=== PATIENT | female | born 1985 | race Caucasian/White ===

== ENCOUNTER 2017-10-15 18:47 | Emergency (ER) | payer SELFPAY ==
[2017-10-15 19:00] VITALS: BP 125/65; PULSE 67; RESP 16; TEMP 98; O2SAT 100
--- NOTE | 2017-10-15 20:19 | ED PDOC ---
HPI: General Adult Time Seen by Provider: 10/15/17 19:04 Chief Complaint (Nursing): Abnormal Skin Integrity Chief Complaint (Provider): Swollen area behind left ear History Per: Patient History/Exam Limitations: no limitations Onset/Duration Of Symptoms: Hrs Current Symptoms Are (Timing): Still Present Additional Complaint(s): 32 year old female presents to the ED with swollen area behind left ear and left jaw which began today. Denies fever. PMD: FAMILY PROVIDER,NO Past Medical History Reviewed: Historical Data, Nursing Documentation, Vital Signs Vital Signs: Last Vital Signs Temp 98.0 F 10/15/17 18:58 Pulse 67 10/15/17 18:58 Resp 16 10/15/17 18:58 BP 125/65 10/15/17 18:58 Pulse Ox 100 10/15/17 20:24 - Medical History PMH: No Chronic Diseases - Surgical History Surgical History: - Family History Family History: States: Unknown Family Hx - Living Arrangements Living Arrangements: With Family - Social History Current smoker - smoking cessation education provided: Yes (Current Some Days Smoker) Ex-Smoker (has not smoked in the last 12 months): Yes Alcohol: None Drugs: Denies - Immunization History Hx Tetanus Toxoid Vaccination: Yes - Home Medications Home Medications: Ambulatory Orders Medication Instructions Recorded Albuterol HFA [Ventolin HFA 90 2 puff IH [id number] PRN #1 inhaler 12/10/15 mcg/actuation (8 g)] Ibuprofen [Motrin] 600 mg PO Q8 PRN #21 tab 12/10/15 Promethazine/Codeine 5 ml PO Q12 PRN #100 ml 12/10/15 [Codeine/Promethazine 10 MG/5 Ml-6.25 MG/5 Ml] Pseudoephedrine [Sudafed Tab] 1 tab PO Q6 PRN #24 tab 12/10/15 Amoxicillin/Clavulanate [Augmentin 1 tab PO BID #20 tab 10/15/17 875 MG-125 MG] - Allergies Allergies/Adverse Reactions: Allergies Allergy/AdvReac Type Severity Reaction Status Date / Time No Known Allergies Allergy Verified 10/15/17 18:57 Review of Systems ROS Statement: Except As Marked, All Systems Reviewed And Found Negative Constitutional: Negative for: Fever, Chills ENT: Positive for: Other (swelling behind left ear and left jaw) Physical Exam - Reviewed Nursing Documentation Reviewed: Yes Vital Signs Reviewed: Yes - Physical Exam Appears: Positive for: No Acute Distress Head Exam: Positive for: NORMAL INSPECTION Skin: Positive for: Normal Color, Warm, Dry. Negative for: Rash Eye Exam: Positive for: Normal appearance, EOMI, PERRL ENT: Positive for: TM Is/Are (normal), Other (mastoid non tender; left posterior area palpable lymph nodes.) Cardiovascular/Chest: Positive for: Regular Rate, Rhythm, Chest Non Tender. Negative for: Tachycardia Respiratory: Positive for: Normal Breath Sounds. Negative for: Wheezing, Respiratory Distress Neurologic/Psych: Positive for: Alert, Oriented - Laboratory Results Result Diagrams: 10/15/17 19:59 10/15/17 19:59 - ECG O2 Sat by Pulse Oximetry: 100 (RA) Pulse Ox Interpretation: Normal Medical Decision Making Medical Decision Makin Initial Impression 32 year old female presenting with swelling behind left ear and left jaw Initial Plan: * CMP * CBC * Reevaluation Documented by Araseli Mclean acting as a scribe for Alondra Cunningham PA-C. All medical record entries made by the Scribe were at my direction and personally dictated by me. I have reviewed the chart and agree that the record accurately reflects my personal performance of the history, physical exam, medical decision making, and the department course for this patient. I have also personally directed, reviewed, and agree with the discharge instructions and disposition. Disposition - Clinical Impression Clinical Impression: Lymphadenopathy - Disposition Disposition: Routine/Home Disposition Time: 21:28 Condition: GOOD Prescriptions: Amoxicillin/Clavulanate [Augmentin 875 MG-125 MG] 1 tab PO BID #20 tab Instructions: Lymphadenopathy (ED) Forms: [employer] ([place]gian)
[2017-10-15 20:32] LABS: ALB/GLOB RATIO 1.2 (1.0-2.1); ALBUMIN 4.3 g/dL (3.5-5.0); ALT/SGPT 57 U/L (9-52); AST/SGOT 42 U/L (14-36); BASO % 0.4 % (0.0-2.0); BLOOD UREA NITROGEN 15 mg/dl (7-17); CALCIUM 9.8 mg/dL (8.4-10.2); EOS # 0.1 K/uL (0.0-0.7); GFR AFRICAN-AMERICAN > 60; GFR NON-AFRICAN AMERICAN > 60; HEMOGLOBIN 12.6 g/dL (12.0-16.0); LYMPH # 2.5 K/uL (1.0-4.3); LYMPH % 36.6 % (20.0-40.0); MEAN CELL VOLUME 90.5 fl (81.0-99.0); MEAN CORPUSCULAR HEMOGLOBIN 30.4 pg (27.0-31.0); MEAN CORPUSCULAR HGB CONC 33.6 g/dL (33.0-37.0); MEAN PLATELET VOLUME 9.4 fl (7.2-11.7); MONO # 0.7 K/uL (0.0-0.8); MONO % 10.2 % (0.0-10.0); NEUT # 3.5 K/uL (1.8-7.0); NEUT % 51.8 % (50.0-75.0); RBC 4.15 Mil/uL (3.80-5.20); RED CELL DISTRIBUTION WIDTH 13.3 % (11.5-14.5); WHITE BLOOD COUNT 6.7 K/uL (4.8-10.8)
== END 2017-10-15 21:38 | disposition home or self-care (01) ==
LOC: H.ER 18:47
DX: R59.0 Localized enlarged lymph nodes (principal)

== ENCOUNTER 2018-06-27 19:52 | Emergency (ER) | payer SELFPAY ==
[2018-06-27 20:18] VITALS: BP 124/72; PULSE 62; RESP 18; TEMP 98.3; O2SAT 100
--- NOTE | 2018-06-28 23:32 | ED PDOC ---
HPI: Headache Time Seen by Provider: 06/27/18 20:29 Chief Complaint (Nursing): Headache History Per: Patient Additional Complaint(s): 33 y/o female with PMH of migraine c/o posterior headache and right sided neck pain x 3 days. Headache is dull and constant. Pt works out at the gym on a daily basis. Has been taking ibuprofen without relief. reports increased stess at work. denies fever, chills, back pain, vision changes, sore throat, eye pain, ear pain, nasal congestion, SOB, cough, numbness, paresthesias. Past Medical History Reviewed: Historical Data, Nursing Documentation, Vital Signs Vital Signs: Last Vital Signs Temp 98.3 F 06/27/18 20:15 Pulse 62 06/27/18 20:15 Resp 18 06/27/18 20:15 BP 124/72 06/27/18 20:15 Pulse Ox 100 06/27/18 20:15 - Surgical History Surgical History: - Family History Family History: States: Unknown Family Hx - Immunization History Hx Tetanus Toxoid Vaccination: Yes - Home Medications Home Medications: Ambulatory Orders Medication Instructions Recorded Albuterol HFA [Ventolin HFA 90 2 puff IH [id number] PRN #1 inhaler 12/10/15 mcg/actuation (8 g)] Ibuprofen [Motrin] 600 mg PO Q8 PRN #21 tab 12/10/15 Promethazine/Codeine 5 ml PO Q12 PRN #100 ml 12/10/15 [Codeine/Promethazine 10 MG/5 Ml-6.25 MG/5 Ml] Pseudoephedrine [Sudafed Tab] 1 tab PO Q6 PRN #24 tab 12/10/15 Amoxicillin/Clavulanate [Augmentin 1 tab PO BID #20 tab 10/15/17 875 MG-125 MG] Cyclobenzaprine [Flexeril] 5 mg PO Q8H #12 tab 06/27/18 - Allergies Allergies/Adverse Reactions: Allergies Allergy/AdvReac Type Severity Reaction Status Date / Time No Known Allergies Allergy Verified 10/15/17 18:57 Review of Systems ROS Statement: Except As Marked, All Systems Reviewed And Found Negative Constitutional: Negative for: Fever, Chills Eyes: Negative for: Pain, Vision Change, Conjunctivae Inflammation, Redness ENT: Negative for: Ear Pain, Nose Pain, Nose Congestion, Mouth Pain, Throat Pain Cardiovascular: Negative for: Chest Pain, Palpitations Respiratory: Negative for: Cough, Shortness of Breath Gastrointestinal: Negative for: Nausea, Vomiting, Abdominal Pain Genitourinary Female: Negative for: Dysuria, Frequency, Incontinence Musculoskeletal: Positive for: Neck Pain (right sided). Negative for: Back Pain Skin: Negative for: Rash Neurological: Positive for: Headache (posterior, dull). Negative for: Weakness, Numbness Physical Exam - Reviewed Nursing Documentation Reviewed: Yes Vital Signs Reviewed: Yes - Physical Exam Appears: Positive for: Well, Non-toxic, No Acute Distress Head Exam: Positive for: ATRAUMATIC, NORMAL INSPECTION, NORMOCEPHALIC Skin: Positive for: Normal Color, Warm, DRY Eye Exam: Positive for: EOMI, Normal appearance, PERRL ENT: Positive for: Normal ENT Inspection, TM Is/Are (normal). Negative for: Sinus Pain/Drainage, Nasal Congestion, Pharyngeal Erythema, Tonsillar Exudate, Tonsillar Swelling Neck: Positive for: Supple, Decreased ROM (secondary to pain) Cardiovascular/Chest: Positive for: Regular Rate, Rhythm Respiratory: Positive for: CNT, Normal Breath Sounds Gastrointestinal/Abdominal: Positive for: Normal Exam, Soft. Negative for: Tenderness Back: Positive for: Normal Inspection, Muscle Spasm (right cervical paraspinal). Negative for: Vertebral Tenderness Extremity: Positive for: Normal ROM. Negative for: Tenderness Neurologic/Psych: Positive for: Alert, legal services professional II-XII (intact), Oriented, Cerebellar Tests (normal), Gait (normal). Negative for: Motor/Sensory Deficits - ECG O2 Sat by Pulse Oximetry: 100 Medical Decision Making Medical Decision Makin33 y/o female with PMH of migraine c/o posterior headache and right sided neck pain x 3 days. Headache is dull and constant. Pt works out at the gym on a daily basis. Has been taking ibuprofen without relief. reports increased stess at work. denies fever, chills, back pain, vision changes, sore throat, eye pain, ear pain, nasal congestion, SOB, cough, numbness, paresthesias. Exam: muscle spasm right cervical paraspinal muscles. Otherwise normal HEENT, cardiac, pulmonary, neuro, abdominal exams. intial plan: --flexeril --pain relief impression: muscle spasm, tension headache plan: No strenuous activity for 7 days Take flexeril every 8 hours as needed for pain Take ibuprofen every 6 hours with food as needed for pain Followup with primary doctor within 2 days Return to ED if symptoms persist or worsen Disposition - Clinical Impression Clinical Impression: Tension headache - Disposition Disposition: Routine/Home Disposition Time: 21:45 Condition: IMPROVED Additional Instructions: No strenuous activity for 7 days Take flexeril every 8 hours as needed for pain Take ibuprofen every 6 hours with food as needed for pain Followup with primary doctor within 2 days Return to ED if symptoms persist or worsen Prescriptions: Cyclobenzaprine [Flexeril] 5 mg PO Q8H #12 tab Forms: [employer] ([place]izen [place])
== END 2018-06-27 22:33 | disposition home or self-care (01) ==
LOC: H.ER 19:52
DX: G44.209 Tension-type headache, unspecified, not intractable (principal)

== ENCOUNTER 2019-02-05 20:43 | Emergency (ER) | payer SELFPAY ==
[2019-02-05 21:05] VITALS: BMI 25.6
[2019-02-05 21:08] VITALS: BP 113/69; PULSE 64; RESP 18; TEMP 98; O2SAT 99
[2019-02-05 21:55] LABS: SQUAMOUS EPITHIAL 1 /hpf (0-5); URINE BACTERIA RARE (<OCC); URINE BILIRUBIN NEGATIVE (NEGATIVE); URINE BLOOD LARGE (NEGATIVE); URINE CLARITY SLIGHTY-CLOUDY (Clear); URINE COLOR STRAW (YELLOW); URINE GLUCOSE (UA) NEG (NEGATIVE); URINE LEUKOCYTE ESTERASE LARGE Leu/uL (Negative); URINE PROTEIN NEGATIVE (NEGATIVE); URINE UROBILINOGEN 0.2-1.0 mg/dL (0.2-1.0)
--- NOTE | 2019-02-05 22:46 | ED PDOC ---
HPI: Female Pain Time Seen by Provider: 02/05/19 21:00 Chief Complaint (Nursing): Female Genitourinary Chief Complaint (Provider): UTI symptoms History Per: Patient History/Exam Limitations: no limitations Onset/Duration Of Symptoms: Intermittent Episodes (x1 week), Worse Since (last night) Current Symptoms Are (Timing): Still Present Additional Complaint(s): 33 year old female presents to the ED for evaluation of a possible UTI involving dysuria and hematuria. Patient states since last week her symptoms have been intermittent, but after having sex last night, they have been constant. Otherwise, denies fever, vomiting, and taking any medications at home. Past Medical History Reviewed: Historical Data, Nursing Documentation, Vital Signs Vital Signs: Last Vital Signs Temp 98.0 F 02/05/19 21:05 Pulse 64 02/05/19 21:05 Resp 18 02/05/19 21:05 BP 113/69 02/05/19 21:05 Pulse Ox 99 02/05/19 21:05 Primary Care Provider: Non [facility] Provider, ([facility]) - Medical History PMH: No Chronic Diseases - Surgical History Surgical History: - Family History Family History: States: Unknown Family Hx - Social History Current smoker - smoking cessation education provided: No Alcohol: None Drugs: Denies - Immunization History Hx Tetanus Toxoid Vaccination: Yes - Home Medications Home Medications: Ambulatory Orders Medication Instructions Recorded Albuterol HFA [Ventolin HFA 90 2 puff IH [id number] PRN #1 inhaler 12/10/15 mcg/actuation (8 g)] Ibuprofen [Motrin] 600 mg PO Q8 PRN #21 tab 12/10/15 Promethazine/Codeine 5 ml PO Q12 PRN #100 ml 12/10/15 [Codeine/Promethazine 10 MG/5 Ml-6.25 MG/5 Ml] Pseudoephedrine [Sudafed Tab] 1 tab PO Q6 PRN #24 tab 12/10/15 Amoxicillin/Clavulanate [Augmentin 1 tab PO BID #20 tab 10/15/17 875 MG-125 MG] Cyclobenzaprine [Flexeril] 5 mg PO Q8H #12 tab 06/27/18 Nitrofurantoin Macrocrystals 100 mg PO BID #14 cap 02/05/19 [Macrobid] - Allergies Allergies/Adverse Reactions: Allergies Allergy/AdvReac Type Severity Reaction Status Date / Time No Known Allergies Allergy Verified 02/05/19 21:05 Review of Systems ROS Statement: Except As Marked, All Systems Reviewed And Found Negative Constitutional: Negative for: Fever Gastrointestinal: Negative for: Vomiting Genitourinary Female: Positive for: Dysuria, Hematuria Physical Exam - Reviewed Nursing Documentation Reviewed: Yes Vital Signs Reviewed: Yes - Physical Exam Appears: Positive for: Well, Non-toxic, No Acute Distress Head Exam: Positive for: ATRAUMATIC, NORMAL INSPECTION, NORMOCEPHALIC Skin: Positive for: Normal Color, Warm, DRY Eye Exam: Positive for: EOMI, Normal appearance, PERRL ENT: Positive for: Normal ENT Inspection Neck: Positive for: Normal, Painless ROM, Supple Cardiovascular/Chest: Positive for: Regular Rate, Rhythm Respiratory: Positive for: Normal Breath Sounds. Negative for: Respiratory Distress Gastrointestinal/Abdominal: Positive for: Normal Exam, Soft. Negative for: Tenderness Back: Positive for: Normal Inspection Extremity: Positive for: Normal ROM Neurological/Psych: Positive for: Awake, Alert, Oriented (x3) - Laboratory Results Lab Results: Urine Color Straw (YELLOW) 02/05/19 21:30 Urine Clarity Slighty-cloudy (Clear) 02/05/19 21:30 Urine pH 7.0 (5.0-8.0) 02/05/19 21:30 Ur Specific Wayne < 1.005 (1.003-1.030) 02/05/19 21:30 Urine Protein Negative mg/dL (NEGATIVE) 02/05/19 21:30 Urine Glucose (UA) Neg mg/dL (NEGATIVE) 02/05/19 21:30 Urine Ketones Negative mg/dL (NEGATIVE) 02/05/19 21:30 Urine Blood Large (NEGATIVE) 02/05/19 21:30 Urine Nitrate Negative (NEGATIVE) 02/05/19 21:30 Urine Bilirubin Negative (NEGATIVE) 02/05/19 21:30 Urine Urobilinogen 0.2-1.0 mg/dL (0.2-1.0) 02/05/19 21:30 Ur Leukocyte Esterase Large Tosin/uL (Negative) 02/05/19 21:30 Urine RBC (Auto) 3 /hpf (0-3) 02/05/19 21:30 Urine Microscopic WBC 45 /hpf (0-5) H 02/05/19 21:30 Ur Squamous Epith Cells 1 /hpf (0-5) 02/05/19 21:30 Urine Bacteria Rare (<OCC) 02/05/19 21:30 - ECG O2 Sat by Pulse Oximetry: 99 (RA) Pulse Ox Interpretation: Normal Medical Decision Making Medical Decision Making: Time: 2129 Initial Impression: dysuria, hematuria, likely UTI Initial Plan: --Urine culture --Urinalysis --Ibuprofen 600mg PO 2244 Urine reviewed and will treat patient for UTI. Script for macrobid given upon d/c and return parameters discussed with all questions answered. Scribe Attestation: Documented by Kalani Claudio, acting as a scribe for Yovanny Cueva MD. Provider Scribe Attestation: All medical record entries made by the Scribe were at my direction and personally dictated by me. I have reviewed the chart and agree that the record accurately reflects my personal performance of the history, physical exam, medical decision making, and the department course for this patient. I have also personally directed, reviewed, and agree with the discharge instructions and disposition. Disposition - Clinical Impression Clinical Impression: UTI (urinary tract infection) - Patient ED Disposition Is Patient to be Admitted: No Counseled Patient/Family Regarding: Studies Performed, Diagnosis, Need For Followup - Disposition Disposition: Routine/Home Disposition Time: 22:46 Condition: IMPROVED Additional Instructions: follow up with Dr Clark your doctor in 2 days return to the ED with any worsening or concerning symptoms Prescriptions: Nitrofurantoin Macrocrystals [Macrobid] 100 mg PO BID #14 cap Instructions: Urinary Tract Infections in Adults, Syncope (Fainting) (DC) Forms: [employer] ([place])
== END 2019-02-05 23:00 | disposition home or self-care (01) ==
LOC: H.ER 20:43
DX: N39.0 Urinary tract infection, site not specified (principal)